=== PATIENT | male | born 1995 | race African-American/Black ===

== ENCOUNTER 2017-11-04 15:22 | Emergency (ER) | payer MEDICAID ==
[~2017-11-04] VITALS: Ht 182.9 cm; Wt 82.0 kg
[~2017-11-04 15:22] MED LIST: HYDR-569 PO; PANT-47 PO
[2017-11-04 15:27] VITALS: BP 108/65
== END 2017-11-04 16:23 | disposition home or self-care (01) ==
LOC: ER 15:23
DX: S93.421A Sprain of deltoid ligament of right ankle, initial encounter (principal); F12.10 Cannabis abuse, uncomplicated; Z79.899 Other long term (current) drug therapy; W18.39XA Other fall on same level, initial encounter; Y93.39 Activity, other involving climbing, rappelling and jumping off; Y92.89 Other specified places as the place of occurrence of the external cause; Y99.8 Other external cause status
CPT/HCPCS: 29515; 73610; 99284

== ENCOUNTER 2018-11-25 21:27 | Emergency (ER) | payer MEDICAID ==
[~2018-11-25] VITALS: Ht 185.4 cm; Wt 90.0 kg
[~2018-11-25 21:27] MED LIST changes: +HYDR-4383 PO; -HYDR-569 PO
[2018-11-25 21:34] VITALS: BP 136/82
[2018-11-25] MEDS ORDERED: LIDOcaine 1% w/epiNEPHrine 1:200,000 30ml vial IM ONE (23:15)
[2018-11-25] MEDS ORDERED: TETanus/Pertussis (Acell)/Diphther VAC/PF (Tdap-Adult) 0.5ml syringe IM ONE (23:15)
[2018-11-25] MEDS ORDERED: ceFAZolin 1GM/D5W- ADD-VANTAGE 50 ML IV ONE (23:15)
[2018-11-26] MEDS ORDERED: DOXY100C2 PO ×2 (00:43→00:46)
[2018-11-26] MEDS ORDERED: CEPH-572 PO (00:43)
[2018-11-26] MEDS ORDERED: HYDR-3965 PO (00:43)
[2018-11-26] MEDS ORDERED: HYDROcodone/acetaminophen 5mg/325mg tablet PO ONE (00:45)
== END 2018-11-26 01:02 | disposition home or self-care (01) ==
LOC: ER 21:28
DX: S61.210A Laceration without foreign body of right index finger without damage to nail, initial encounter (principal); F12.90 Cannabis use, unspecified, uncomplicated; Z79.899 Other long term (current) drug therapy; Z79.2 Long term (current) use of antibiotics; W23.0XXA Caught, crushed, jammed, or pinched between moving objects, initial encounter; Y93.89 Activity, other specified; Y92.89 Other specified places as the place of occurrence of the external cause; Y99.8 Other external cause status
CPT/HCPCS: 12002; 73120; 90471; 90715; 96365; 99283; J0690; J3490

== ENCOUNTER 2018-12-24 23:00 | Emergency (ER) | payer MEDICAID ==
[~2018-12-24] VITALS: Ht 185.4 cm; Wt 68.0 kg
[~2018-12-24 23:00] MED LIST changes: +DOXY100C2 PO
[2018-12-25] MEDS ORDERED: HYDR-3965 PO (00:52)
[2018-12-25] MEDS ORDERED: NAPR-56 PO (00:52)
[2018-12-25] MEDS ORDERED: naproxen 500mg tablet PO ONE (00:55)
[2018-12-25] MEDS ORDERED: HYDROcodone/acetaminophen 5mg/325mg tablet PO ONE (00:55)
[2018-12-25 01:32] VITALS: BP 127/73
== END 2018-12-25 01:34 | disposition home or self-care (01) ==
LOC: ER 23:01
DX: T81.30XA Disruption of wound, unspecified, initial encounter (principal); F12.90 Cannabis use, unspecified, uncomplicated; Z79.899 Other long term (current) drug therapy; Y83.9 Surgical procedure, unspecified as the cause of abnormal reaction of the patient, or of later complication, without mention of misadventure at the time of the procedure; Y92.89 Other specified places as the place of occurrence of the external cause
CPT/HCPCS: 73140; 99283

== ENCOUNTER 2019-06-15 19:45 | Emergency (ER) | payer MEDICAID ==
[~2019-06-15] VITALS: Ht 182.9 cm; Wt 87.6 kg
[2019-06-15 19:49] VITALS: BP 124/73
[2019-06-15] MEDS ORDERED: HYDROcodone/acetaminophen 10/325mg tab PO STA (19:55)
== END 2019-06-15 21:05 | disposition home or self-care (01) ==
LOC: ER 19:46
DX: S63.611A Unspecified sprain of left index finger, initial encounter (principal); F12.90 Cannabis use, unspecified, uncomplicated; Z79.899 Other long term (current) drug therapy; W23.0XXA Caught, crushed, jammed, or pinched between moving objects, initial encounter; Y93.89 Activity, other specified; Y92.810 Car as the place of occurrence of the external cause; Y99.8 Other external cause status
CPT/HCPCS: 73140; 99283

== ENCOUNTER 2019-09-21 00:23 | Emergency (ER) | payer MEDICAID ==
[~2019-09-21] VITALS: Ht 185.4 cm; Wt 90.9 kg
[2019-09-21 00:29] VITALS: BP 137/67
[2019-09-21] MEDS ORDERED: CETI-90 PO (00:55)
[2019-09-21] MEDS ORDERED: PENI500T2 PO (00:55)
== END 2019-09-21 01:29 | disposition home or self-care (01) ==
LOC: ER 00:24
DX: R05 Cough (principal); J02.9 Acute pharyngitis, unspecified; F12.90 Cannabis use, unspecified, uncomplicated; Z98.890 Other specified postprocedural states; Z79.2 Long term (current) use of antibiotics; Z79.899 Other long term (current) drug therapy
CPT/HCPCS: 87081; 87880; 99283